=== PATIENT | male | born 1970 | race Caucasian/White ===

== ENCOUNTER → 2017-06-21 | Day surgery (SDC) | payer OTHER ==
[~2017-06-21] MED LIST: BUPIVACAINE HCL/EPINEPHRINE/PF 30 ML VIAL IJ ONE; DEXAMETHASONE SOD PHOSPHATE 4 MG/1 ML VIAL ONE; KETOROLAC TROMETHAMINE 30 MG/1 ML VIAL ONE; LACTATED RINGERS SOLUTION 1,000 ML IV SCH; MIDAZOLAM HCL 2 MG/2 ML SINGLE DOSE VIAL ONE; ONDANSETRON 4 MG/2 ML VIAL IVPUSH PRN; ONDANSETRON 4 MG/2 ML VIAL ONE; PROMETHAZINE HCL 25 MG/1 ML VIAL IVPUSH PRN; PROPOFOL 20 ML ONE; SUCCINYLCHOLINE CHLORIDE 200 MG/10 ML VIAL ONE; ceFAZolin SODIUM 1 GM VIAL ONE; oxyCODONE HCL 5 MG TABLET ONE; oxyCODONE HCL 5 MG TABLET PO PRN
--- NOTE | 2017-06-21 08:39 | OP ---
Operative Note - Note: Operative Date: 06/21/17 Pre-Operative Diagnosis: left knee MMT Operation: LKA, PMM Post-Operative Diagnosis: Same as Pre-op Surgeon: Trent Trejo Anesthesia: General Operative Report Dictated: Yes
--- NOTE | 2017-06-21 08:40 | DS ---
Physical Examination Vital Signs: Vital Signs Temperature 98.5 F 06/21/17 06:23 Pulse Rate 85 06/21/17 06:23 Respiratory Rate 18 06/21/17 06:23 Blood Pressure 147/82 06/21/17 06:23 O2 Sat by Pulse Oximetry (%) 97 06/21/17 06:23 Discharge Summary Reason For Visit: MEDIAL MENISCAL TEAR LEFT KNEE Condition: Good - Instructions Diet, Activity, Other Instructions: Post Operative Instructions: Knee Arthroscopy Dr Trent Trejo 1. Pain following an arthroscopy is variable. Some patients will have more pain than others. You have been provided with a prescription for medication that contains a narcotic. You are not allowed to drive while on this medication. You should NOT take Tylenol (Acetaminophen) when taking the pain medication ( it will result in an overdose). Feel free to take medications such as Ibuprofen or Naprosyn in addition to the pain medicine if you do not have any problems with the NSAID class of medications. 2. You are allowed to remove the bandages and shower in 24 hours unless directed otherwise. You are not allowed to bathe or go swimming until the sutures are removed. Put band-aids on the incision after your shower and do not put any creams or lotions over the incisions. 3. You are allowed to put all your weight on the leg and bend your knee, 4. Apply ice to the knee for 15 min every hour or so. You may continue this for as many days as you like. 5. Please call the office to schedule a visit to have your sutures removed. 6. If for any reason you believe you may have an infection or are concerned, please feel free to call me. I can be reached through our office number 24 hours a day. 7. Please call our office with any questions; we will review the surgical findings during your post operative visit. Disposition: HOME - Home Medications Comprehensive Discharge Medication List: Ambulatory Orders Escitalopram Oxalate [Lexapro -] 10 mg PO DAILY 03/17/14 Olmesartan Medoxomil [Benicar -] 20 mg PO DAILY 07/07/14 Ibuprofen [Advil -] 600 mg PO Q12H PRN 06/21/17
[2017-06-21 10:08] VITALS: BP 132/67; PULSE 75; TEMP 97.8
--- NOTE | 2017-06-24 14:54 | PATH ---
Surgical Pathology Report Patient Name: LATISHA HARRY Med. Rec. #: [id number] /Age/Gender: 1970 (Age: 46) / M Account: [id number] Location: [facility] Taken: 06/21/2017 Received: 06/21/2017 Reported: 06/24/2017 Physicians: Trent Trejo M.D. Specimen(s) Received SHAVINGS LEFT KNEE Clinical History Medial meniscus tear left knee Final Diagnosis KNEE, LEFT, ARTHROSCOPIC SHAVINGS: CARTILAGE AND FIBROSYNOVIAL TISSUE. Electronically Signed Dinora Aldrich M.D. Gross Description Received in formalin, labeled "shavings left knee," is a 3.0 x 2.2 x 0.3 cm. aggregate of matt-yellow soft tissue fragments. A telephone services sales representative portion is submitted in one cassette. /06/21/201706/21/2017
== END | disposition home or self-care (01) ==
LOC: FASU 06:01
PROVIDERS: ATTEND Orthopaedic Surgery
PROC: 0SBD4ZZ Excision of Left Knee Joint, Percutaneous Endoscopic Approach (ICD-10-PCS; principal; 2017-06-21 08:01)
DX: S83.232A Complex tear of medial meniscus, current injury, left knee, initial encounter (principal); X58.XXXA Exposure to other specified factors, initial encounter; Y93.9 Activity, unspecified; Y92.9 Unspecified place or not applicable
CPT/HCPCS: 88304-TC